=== PATIENT | female | born 1985 | race Caucasian/White ===

== ENCOUNTER → 2021-03-01 | Day surgery (SDC) | payer OTHER ==
[~2021-03-01] MED LIST: AMLODIPINE BESYL5 MG PO; ARNUITY ELLIPT50 MCG INH; COLACE 100MG C100 MG PO; DULOXETINE HCL60 MG PO; ELAVIL 50 MG TA50 MG PO; HUMULIN N100 UNIT/1 SQ; HUMULIN R100 UNIT/1 INJ; HYDROCHLOROTHIA25 MG PO; HYDROCODON-ACE1 EAC4 PO; IBUPROFEN800 MG PO; MENSTRUAL RELI1 EACH PO; METHOCARBAMOL750 MG PO; NAPROSYN EC 50500 MG PO; NAPROXEN500 MG PO; NEXIUM40 MG PO; OMEPRAZOLE20 M1 PO; PRENATAL VITAM1 EAC8 PO; TYLENOL EXTRA500 MG PO; ZOFRAN 4 MG TAB4 MG PO; ZOFRAN4 MG PO
[2021-03-01 07:46] LABS: HEMOGLOBIN 12.9 gm/dl (12.3-15.3); RED BLOOD COUNT 4.7 M/UL (4.00-5.10)
[2021-03-01 08:09] LABS: BUN/CREATININE RATIO 24 (0-10)
== END | disposition home or self-care (01) ==
LOC: OR 06:49
PROVIDERS: Obstetrics & Gynecology
DX: N93.9 Abnormal uterine and vaginal bleeding, unspecified (principal); E11.9 Type 2 diabetes mellitus without complications; J40 Bronchitis, not specified as acute or chronic; K76.0 Fatty (change of) liver, not elsewhere classified; E66.01 Morbid (severe) obesity due to excess calories; M19.90 Unspecified osteoarthritis, unspecified site; Z82.49 Family history of ischemic heart disease and other diseases of the circulatory system; Z83.3 Family history of diabetes mellitus; Z82.5 Family history of asthma and other chronic lower respiratory diseases; Z80.1 Family history of malignant neoplasm of trachea, bronchus and lung; F17.210 Nicotine dependence, cigarettes, uncomplicated; Z68.42 Body mass index [BMI] 45.0-49.9, adult
CPT/HCPCS: 36415; 80048; 81001; 84703; 85025; J1100; J2250; J2310; J2405; J2704; J3010; J7030; J7120

== ENCOUNTER → 2021-07-26 | Day surgery (SDC) | payer OTHER ==
[~2021-07-26] MED LIST changes: +HYDROCODON-ACE1 EAC2 PO
[2021-07-26 10:31] LABS: HEMOGLOBIN 14.5 gm/dl (12.3-15.3); RED BLOOD COUNT 4.84 M/UL (4.00-5.10)
[2021-07-26 10:42] LABS: BUN/CREATININE RATIO 20 (0-10)
== END | disposition home or self-care (01) ==
LOC: OR 09:30
PROVIDERS: Obstetrics & Gynecology
DX: N92.0 Excessive and frequent menstruation with regular cycle (principal); N72 Inflammatory disease of cervix uteri; N88.8 Other specified noninflammatory disorders of cervix uteri; E66.01 Morbid (severe) obesity due to excess calories; K21.9 Gastro-esophageal reflux disease without esophagitis; K76.0 Fatty (change of) liver, not elsewhere classified; M19.90 Unspecified osteoarthritis, unspecified site; G43.909 Migraine, unspecified, not intractable, without status migrainosus; E11.9 Type 2 diabetes mellitus without complications; F17.210 Nicotine dependence, cigarettes, uncomplicated; Z20.822 Contact with and (suspected) exposure to COVID-19; Z68.42 Body mass index [BMI] 45.0-49.9, adult; Z90.79 Acquired absence of other genital organ(s); Z79.899 Other long term (current) drug therapy
CPT/HCPCS: 80053; 81001; 85025; C1769; J0690; J1100; J1170; J1885; J1940; J2001; J2250; J2405; J2704; J2795; J3010; J7030; J7120; U0002